=== PATIENT | male | born 1960 | race Two or more races ===

== ENCOUNTER 2017-04-06 13:17 | Outpatient (CLI) | payer OTHER ==
[~2017-04-06 13:17] MED LIST: AMLODIPINE BESY10 MG; LOSARTAN POTAS100 MG; ZOCOR20 MG
== END 2017-04-06 13:19 | disposition home or self-care (01) ==
LOC: SONOGRAMA 13:17 → MAMO-SONO 14:15
DX: N40.0 Benign prostatic hyperplasia without lower urinary tract symptoms (principal); R31.21 Asymptomatic microscopic hematuria; C61 Malignant neoplasm of prostate

== ENCOUNTER → 2017-06-29 | Outpatient (CLI) | payer OTHER | END | disposition home or self-care (01) | LOC: TOM 07:37 | DX: R10.30 Lower abdominal pain, unspecified (principal) ==

== ENCOUNTER 2018-02-18 07:47 | Outpatient (CLI) | payer OTHER | END 2018-02-18 07:58 | disposition home or self-care (01) | LOC: SONOGRAMA 07:47 → MAMO-SONO 08:15 | DX: K21.9 Gastro-esophageal reflux disease without esophagitis (principal); K76.0 Fatty (change of) liver, not elsewhere classified; R10.30 Lower abdominal pain, unspecified; E78.00 Pure hypercholesterolemia, unspecified; I10 Essential (primary) hypertension; M54.5 Low back pain ==

== ENCOUNTER 2018-05-03 09:15 | Outpatient (CLI) | payer OTHER | END 2018-05-03 10:00 | disposition home or self-care (01) | LOC: NUCLEAR 09:15 | DX: I87.2 Venous insufficiency (chronic) (peripheral) (principal); E78.00 Pure hypercholesterolemia, unspecified; I70.213 Atherosclerosis of native arteries of extremities with intermittent claudication, bilateral legs ==

== ENCOUNTER 2018-05-06 09:57 | Outpatient (CLI) | payer OTHER | END 2018-05-06 10:00 | disposition home or self-care (01) | LOC: NUCLEAR 09:57 | DX: I87.2 Venous insufficiency (chronic) (peripheral) (principal); I70.213 Atherosclerosis of native arteries of extremities with intermittent claudication, bilateral legs; E78.00 Pure hypercholesterolemia, unspecified ==

== ENCOUNTER 2018-05-27 13:42 | Outpatient (CLI) | payer OTHER | END 2018-05-27 13:59 | disposition home or self-care (01) | LOC: SONOGRAMA 13:42 → MAMO-SONO 14:15 | DX: I87.2 Venous insufficiency (chronic) (peripheral) (principal); I70.213 Atherosclerosis of native arteries of extremities with intermittent claudication, bilateral legs; M54.5 Low back pain; M54.2 Cervicalgia; C61 Malignant neoplasm of prostate; E78.00 Pure hypercholesterolemia, unspecified; M1A.00X0 Idiopathic chronic gout, unspecified site, without tophus (tophi); R10.30 Lower abdominal pain, unspecified ==

== ENCOUNTER 2018-07-26 19:37 | Emergency (ER) | payer OTHER ==
[~2018-07-26] VITALS: Ht 172.7 cm; Wt 2.3 kg
[2018-07-26] MEDS ORDERED: SIMVASTATIN5 MG (20:14)
[2018-07-26] MEDS ORDERED: NORVASC2.5 M1 (20:14)
== END 2018-07-27 00:21 | disposition home or self-care (01) ==
LOC: ER 19:37
DX: S92.412A Displaced fracture of proximal phalanx of left great toe, initial encounter for closed fracture (principal); W22.8XXA Striking against or struck by other objects, initial encounter; Y93.89 Activity, other specified; Y92.098 Other place in other non-institutional residence as the place of occurrence of the external cause; Y99.8 Other external cause status

== ENCOUNTER 2018-08-08 14:08 | Outpatient (CLI) | payer OTHER ==
[~2018-08-08 14:08] MED LIST changes: +NORVASC2.5 M1; +SIMVASTATIN5 MG
== END 2018-08-08 14:15 | disposition home or self-care (01) ==
LOC: RAD 14:08
DX: S92.512A Displaced fracture of proximal phalanx of left lesser toe(s), initial encounter for closed fracture (principal)

== ENCOUNTER 2018-08-17 14:08 | Outpatient (CLI) | payer OTHER | END 2018-08-17 14:12 | disposition home or self-care (01) | LOC: MRI 14:08 | DX: M54.12 Radiculopathy, cervical region (principal) | CPT/HCPCS: 72141 ==

== ENCOUNTER 2018-12-22 14:12 | Outpatient (CLI) | payer OTHER | END 2018-12-22 15:59 | disposition home or self-care (01) | LOC: TOM 14:12 | DX: R51 Headache (principal) ==

== ENCOUNTER 2019-03-29 07:25 | Outpatient (CLI) | payer OTHER | END 2019-03-29 07:26 | disposition home or self-care (01) | LOC: SONOGRAMA 07:25 → MAMO-SONO 07:45 | DX: K29.00 Acute gastritis without bleeding (principal); I11.9 Hypertensive heart disease without heart failure; M1A.00X0 Idiopathic chronic gout, unspecified site, without tophus (tophi); K76.0 Fatty (change of) liver, not elsewhere classified ==

== ENCOUNTER 2019-08-25 07:26 | Outpatient (CLI) | payer OTHER | END 2019-08-25 07:30 | disposition home or self-care (01) | LOC: NUCLEAR 07:26 | PROVIDERS: ATTEND Internal Medicine Cardiovascular Disease | DX: I25.118 Atherosclerotic heart disease of native coronary artery with other forms of angina pectoris (principal) | CPT/HCPCS: 78452; 93017; A9500 ==

== ENCOUNTER 2022-09-14 08:32 | Outpatient (CLI) | payer OTHER | END 2022-09-14 08:35 | disposition home or self-care (01) | LOC: SONOGRAMA 08:32 | PROVIDERS: ATTEND Internal Medicine | DX: K76.0 Fatty (change of) liver, not elsewhere classified (principal); I11.9 Hypertensive heart disease without heart failure; E66.8 Other obesity ==

== ENCOUNTER 2024-11-01 07:52 | Outpatient (CLI) | payer OTHER | END 2024-11-01 07:56 | disposition home or self-care (01) | LOC: RAD 07:52 | DX: J45.991 Cough variant asthma (principal); U09.9 Post COVID-19 condition, unspecified; I10 Essential (primary) hypertension; J31.2 Chronic pharyngitis; N20.0 Calculus of kidney; E78.5 Hyperlipidemia, unspecified ==